=== PATIENT | female | born 1965 | race Caucasian/White ===

== ENCOUNTER 2019-09-14 02:38 | Emergency (ER) | payer MEDICARE ==
[~2019-09-14] VITALS: Ht 165.1 cm; Wt 54.4 kg
[2019-09-14] MEDS ORDERED: TRAMADOL 50 MG50 MG PO (03:33)
[2019-09-14] MEDS ORDERED: KEFLEX500 M1 PO (03:33)
[2019-09-14 04:02] VITALS: BP 118/79
== END 2019-09-14 04:04 | disposition home or self-care (01) ==
LOC: M.ERS 02:38
DX: S60.551A Superficial foreign body of right hand, initial encounter (principal); F17.210 Nicotine dependence, cigarettes, uncomplicated; W27.3XXA Contact with needle (sewing), initial encounter; Y93.89 Activity, other specified; Y92.89 Other specified places as the place of occurrence of the external cause; Y99.8 Other external cause status